=== PATIENT | male | born 1990 | race Caucasian/White ===

== ENCOUNTER 2018-04-04 19:59 | Emergency (ER) | payer OTHER ==
[~2018-04-04] VITALS: Ht 175.3 cm; Wt 88.5 kg
[2018-04-04 20:55] LABS: ABSOLUTE NEUTROPHILS 10.7 thou/uL (1.4-8.2); BASOPHILS 0.6 % (0.0-2.0); EOSINOPHILS 1.8 % (0.0-3.0); HEMATOCRIT 43.6 % (42.0-52.0); HEMOGLOBIN 14.9 gm/dL (14.0-18.0); LYMPHOCYTES 11.4 % (24.0-44.0); MCH 28.7 pg (26.0-34.0); MCHC 34.2 g/dL (28.0-37.0); MCV 83.9 fL (80.0-100.0); MONOCYTES 6.6 % (1.0-8.0); PLATELET COUNT 281 thou/uL (150-400); POLYS 79.6 % (36.0-66.0); RBC 5.19 mil/uL (4.50-6.00); RDW 12.5 % (10.5-14.5); WBC 13.4 thou/uL (4.0-11.0)
[2018-04-04 21:02] LABS: CALCIUM 9.4 mg/dL (8.5-10.1); CREATININE 1.1 mg/dL (0.7-1.3)
[2018-04-04] MEDS ORDERED: NORCO 5-325 TA1 EACH PO ×2 (21:34→21:55)
[2018-04-04] MEDS ORDERED: VALIUM5 MG PO ×2 (21:34→21:55)
[2018-04-04 21:44] VITALS: BP 156/88
== END 2018-04-04 21:57 | disposition home or self-care (01) ==
LOC: ER 19:59
PROVIDERS: Physician Assistant
DX: S13.4XXA Sprain of ligaments of cervical spine, initial encounter (principal); X58.XXXA Exposure to other specified factors, initial encounter; Y93.89 Activity, other specified; Y92.89 Other specified places as the place of occurrence of the external cause; Y99.8 Other external cause status

== ENCOUNTER 2019-09-05 02:39 | Emergency (ER) | payer OTHER ==
[~2019-09-05] VITALS: Ht 177.8 cm; Wt 102.1 kg
[~2019-09-05 02:39] MED LIST: NORCO 5-325 TA1 EACH PO; VALIUM5 MG PO
[2019-09-05 03:30] LABS: ABSOLUTE NEUTROPHILS 6.5 thou/uL (1.4-8.2); BASOPHILS 0.3 % (0.0-2.0); EOSINOPHILS 2.4 % (0.0-3.0); HEMATOCRIT 42.3 % (42.0-52.0); HEMOGLOBIN 14.4 gm/dL (14.0-18.0); LYMPHOCYTES 10.9 % (24.0-44.0); MCH 29.3 pg (26.0-34.0); MCHC 34.2 g/dL (28.0-37.0); MCV 85.7 fL (80.0-100.0); MONOCYTES 4.8 % (1.0-8.0); PLATELET COUNT 240 thou/uL (150-400); POLYS 81.6 % (36.0-66.0); RBC 4.93 mil/uL (4.50-6.00); RDW 12.8 % (10.5-14.5)
[2019-09-05 03:45] LABS: ALBUMIN 4.2 g/dL (3.4-5.0); BUN 11 mg/dL (7-18); CALCIUM 8.7 mg/dL (8.5-10.1); CREATININE 1.1 mg/dL (0.7-1.3); DIRECT BILIRUBIN < 0.1 mg/dL (<0.1-0.2); GLUCOSE 91 mg/dL (74-106); SGOT 23 U/L (15-37); SGPT 63 U/L (30-65); TOTAL BILIRUBIN 0.4 mg/dL (0.2-1.0); TOTAL PROTEIN 7.6 g/dL (6.4-8.2)
[2019-09-05 04:00] LABS: ANION GAP 7 mmol/L (7-16); CHLORIDE 103 mmol/L (98-107); CO2 29 mmol/L (21-32); POTASSIUM 3.9 mmol/L (3.5-5.1); SODIUM 139 mmol/L (136-145)
[2019-09-05 04:39] LABS: URINE BILIRUBIN NEGATIVE (Negative); URINE BLOOD NEGATIVE (Negative); URINE CLARITY CLEAR; URINE COLOR YELLOW; URINE GLUCOSE-RANDOM* NEGATIVE (Negative); URINE KETONES NEGATIVE (Negative); URINE LEUKOCYTES-REFLEX NEGATIVE (Negative); URINE NITRITE-REFLEX NEGATIVE (Negative); URINE PROTEIN (DIPSTICK) NEGATIVE (Negative); URINE UROBILINOGEN 0.2 E.U./dl (0.2-1.0)
[2019-09-05] MEDS ORDERED: ZOFRAN ODT4 MG PO (05:11)
[2019-09-05] MEDS ORDERED: NORCO 5-325 TA1 EAC1 PO (05:11)
[2019-09-05 05:18] VITALS: BP 118/70
== END 2019-09-05 05:24 | disposition home or self-care (01) ==
LOC: ER 02:39
PROVIDERS: Emergency Medicine
DX: R10.9 Unspecified abdominal pain (principal); R19.7 Diarrhea, unspecified; R11.0 Nausea; Z98.890 Other specified postprocedural states

== ENCOUNTER 2019-09-26 08:37 | Emergency (ER) | payer OTHER ==
[~2019-09-26] VITALS: Ht 177.8 cm; Wt 104.3 kg
[~2019-09-26 08:37] MED LIST changes: +NORCO 5-325 TA1 EAC1 PO; +ZOFRAN ODT4 MG PO
[2019-09-26 08:42] VITALS: BP 135/84
[2019-09-26] MEDS ORDERED: BENADRYL25 MG PO ×2 (09:20→09:32)
[2019-09-26] MEDS ORDERED: PREDNISONE 20 M20 MG PO ×2 (09:20→09:32)
== END 2019-09-26 09:34 | disposition home or self-care (01) ==
LOC: ER 08:37
DX: L50.9 Urticaria, unspecified (principal); Z72.0 Tobacco use